=== PATIENT | female | born 1940 | race Caucasian/White ===

== ENCOUNTER → 2018-05-16 | Outpatient (CLI) | payer MEDICARE ==
--- NOTE | 2018-05-16 14:58 | RADIOLOGY REPORT (SQ) ---
EXAM DESCRIPTION: NM 3 PHASE BONE SCAN COMPLETED DATE/TIME: 05/16/2018 2:11 pm REASON FOR STUDY: PAIN IN RIGHT KNEE (M25.561) M25.561 PAIN IN RIGHT KNEE COMPARISON: Outside plain films left femur 04/05/2018. Outside plain films bilateral knees 01/05/2018. RADIONUCLIDE AND DOSE: 20.9 millicuries Tc99m HDP. The route of agent administration: Intravenous. ADDITIONAL DRUGS AND DOSES: None. TECHNIQUE: Following injection of the radiopharmaceutical, serial blood flow images acquired. Equil ibrium blood pool images then acquired. Routine delayed images at 3 hour acquired of the areas of cl inical concern with additional focused images as needed. AREA OF INTEREST: Right knee and femur. LIMITATIONS: None. FINDINGS: VASCULAR FLOW IMAGES: No asymmetry or focal areas of hyperemia. BLOOD POOL IMAGES: Expected mild uptake adjacent to the left knee arthroplasty performed March. BONES: Expected uptake associated with left knee arthroplasty, janina and hip compression screw left hip . Unexpected focal uptake right anterior femoral diaphysis. KIDNEYS: Kidneys not imaged. OTHER: No other significant finding. IMPRESSION: 1. Focal uptake right femoral diaphysis on delayed imaging only. Recommend correlation with plain fi lms of the right femur. 2. No evidence of loosening or infection in the left femur or knee. COMMENT: Quality measure 147: Current bone scan is compared with any available plain radiographs, p rior bone scans, and CT/MRI. TECHNICAL DOCUMENTATION: JOB ID: [id number] [employer]- All Rights Reserved Reading location - IP/workstation name: [email or web address]
== END ==
LOC: RAD 09:58
PROVIDERS: ATTEND Orthopaedic Surgery
DX: M25.561 Pain in right knee (principal)
CPT/HCPCS: 78315; A9561; Q9969